=== PATIENT | male | born 1975 | race African-American/Black ===

== ENCOUNTER → 2017-08-09 | Day surgery (SDC) | payer BC ==
[2017-08-08 13:17] LABS: BASOPHILS % 0.4 % (0.0-1.0); EOSINOPHILS # (AUTO) 0.1 (0.0-0.4); EOSINOPHILS % 2.2 % (0.0-6.0); HEMATOCRIT 37.2 % (38.2-49.6); HEMOGLOBIN 12.8 g/dL (14.0-18.0); LYMPHOCYTES % 39.8 % (18.0-39.1); MEAN CORPUSCULAR HEMOGLOBIN 30.1 pg (28-32); MEAN CORPUSCULAR HGB CONC 34.4 g/dL (31-35); MEAN CORPUSCULAR VOLUME 87.5 fL (81-99); MONOCYTES # (AUTO) 0.5 (0.2-0.8); MONOCYTES % 10.3 % (4.4-11.3); NEUTROPHILS # (AUTO) 2.4 (2.1-6.9); NEUTROPHILS % 47.3 % (38.7-80.0); PLATELET COUNT 242 x10e3/uL (140-360); RED BLOOD COUNT 4.25 x10e6/uL (4.3-5.7); RED CELL DISTRIBUTION WIDTH 13.1 % (11.7-14.4)
[2017-08-08 13:26] LABS: INR 1.06
[2017-08-08 13:34] LABS: ALANINE AMINOTRANSFERASE 45 IU/L (0-55); ALBUMIN/GLOBULIN RATIO 1.1 (0.8-2.0); ALKALINE PHOSPHATASE 80 IU/L (40-150); ANION GAP 11.2 mmol/L (8-16); BLOOD UREA NITROGEN 9 mg/dL (7-26); BUN/CREATININE RATIO 9 (6-25); CALCIUM 9.9 mg/dL (8.4-10.2); CARBON DIOXIDE 29 mmol/L (22-29); CHLORIDE 106 mmol/L (98-107); CHOL/HDL RATIO 4.1 (3.9-4.7); CHOLESTEROL 185 MD/DL (0-199); CREATININE, SERUM 0.97 mg/dL (0.72-1.25); EST GLOMERULAR FILTRATION RATE > 60 ML/MIN (60-); GLUCOSE 95 mg/dL (74-118); HDL CHOLESTEROL 45 MG/DL (40-60); LDL CHOLESTEROL 125 MG/DL (60-130); POTASSIUM 4.2 mmol/L (3.5-5.1); SODIUM 142 mmol/L (136-145); TRIGLYCERIDES 77 MG/DL (0-149)
[2017-08-09] VITALS (9 sets, daily range): BP systolic 113–134; BP diastolic 78–88
[~2017-08-09] VITALS: Ht 170.2 cm; Wt 79.4 kg
[~2017-08-09] MED LIST: ALPRAZOLAM 0.5 MG TAB ONE; ASPIRIN81 MG PO; ATROPINE SULFATE 0.1 MG/ML 10ML SYR ONE; COQ-10100 MG PO; DIPHENHYDRAMINE HCL 25 MG CAP ONE; FENTANYL CITRATE/PF 100MCG/2 ML INJ ONE; FISH OIL 1,2001 EAC1 PO; GINGER500 MG PO; HEPARIN SOD/SOD CHLORIDE 2,000 ML ONE; IOPAMIDOL 370 MG/ML 200 ML INFUS..BTL INJ ONE; LIDOCAINE HCL 2% LOCAL 20 ML VIAL ONE; LISINOPRIL10 MG PO; MELATONIN3 MG PO; MIDAZOLAM HCL 2 MG/2 ML VIAL ONE; MILK THISTLE500 MG PO; SODIUM CHLORIDE 0.9% 1000ML 1,000 ML ONE; TURMERIC1 GM PO; VERAPAMIL HCL 2.5 MG/ML 2 ML VIAL ONE; VITAMIN B COMP1 EACH PO; VITAMIN D32000 UNIT PO
--- NOTE | 2017-08-09 15:24 | Operative Report ---
DATE OF PROCEDURE: August 09, 2017 INDICATIONS: Coronary artery disease. Unstable angina. PROCEDURES PERFORMED: 1. Left heart catheterization, selective coronary angiography, and left ventriculography. 2. Deployment of right wrist transradial band. COMPLICATIONS: None. RECOMMENDATIONS: Aggressive medical therapy for coronary artery spasm, Prinzmetal angina. DESCRIPTION OF PROCEDURE: Access was obtained in the right radial artery. A 5-Q[place] sheath was placed. Diagnostic coronary angiogram revealed widely patent coronary arteries in the right coronary, left main, left circumflex, and left anterior descending artery along with their branches. Excellent flow. No critical stenosis or occlusions. Mid procedure the patient had severe spasm of the right coronary artery with marked bradycardia as well as ST elevation in the inferior leads. He was administered nitroglycerin and atropine with complete resolution of his symptoms. LV ejection fraction 65%. LV end-diastolic pressure of 15. No gradient across the aortic valve on pullback. Guide and sheath were removed. TR band applied. Patient was discharged home same day with instructions for medical therapy for severe coronary spasm. Job#: [id number] EV
== END | disposition home or self-care (01) ==
LOC: CATH LAB 11:21
PROVIDERS: ATTEND Internal Medicine Interventional Cardiology
DX: I25.111 Atherosclerotic heart disease of native coronary artery with angina pectoris with documented spasm (principal); R00.1 Bradycardia, unspecified; Z01.812 Encounter for preprocedural laboratory examination; Z79.82 Long term (current) use of aspirin; Z82.49 Family history of ischemic heart disease and other diseases of the circulatory system; Z82.3 Family history of stroke
CPT/HCPCS: 36415; 77002; 80053; 80061; 85025; 85610; 93458; C1769; C1887; J2001; J2250; J7030; Q9967; 36140; 93452

== ENCOUNTER 2017-10-10 20:05 | Emergency (ER) | payer BC ==
[~2017-10-10] VITALS: Ht 170.2 cm; Wt 79.4 kg
[~2017-10-10 20:05] MED LIST changes: -ALPRAZOLAM 0.5 MG TAB ONE; -ATROPINE SULFATE 0.1 MG/ML 10ML SYR ONE; -DIPHENHYDRAMINE HCL 25 MG CAP ONE; -FENTANYL CITRATE/PF 100MCG/2 ML INJ ONE; -HEPARIN SOD/SOD CHLORIDE 2,000 ML ONE; -IOPAMIDOL 370 MG/ML 200 ML INFUS..BTL INJ ONE; -LIDOCAINE HCL 2% LOCAL 20 ML VIAL ONE; -MIDAZOLAM HCL 2 MG/2 ML VIAL ONE; -SODIUM CHLORIDE 0.9% 1000ML 1,000 ML ONE; -VERAPAMIL HCL 2.5 MG/ML 2 ML VIAL ONE
[2017-10-10 21:23] LABS: BASOPHILS % 0.4 % (0.0-1.0); EOSINOPHILS # (AUTO) 0.4 (0.0-0.4); EOSINOPHILS % 4.4 % (0.0-6.0); HEMATOCRIT 37.2 % (38.2-49.6); HEMOGLOBIN 12.5 g/dL (14.0-18.0); LYMPHOCYTES # (AUTO) 2.8 (1.0-3.2); LYMPHOCYTES % 34.4 % (18.0-39.1); MEAN CORPUSCULAR HEMOGLOBIN 29.8 pg (28-32); MEAN CORPUSCULAR HGB CONC 33.6 g/dL (31-35); MEAN CORPUSCULAR VOLUME 88.6 fL (81-99); MONOCYTES # (AUTO) 0.8 (0.2-0.8); MONOCYTES % 9.6 % (4.4-11.3); NEUTROPHILS # (AUTO) 4.1 (2.1-6.9); NEUTROPHILS % 50.8 % (38.7-80.0); PLATELET COUNT 211 x10e3/uL (140-360); RED CELL DISTRIBUTION WIDTH 14.3 % (11.7-14.4)
--- NOTE | 2017-10-10 22:02 | Diagnostic Imaging Report ---
EXAMINATION: CHEST 2 VIEWS INDICATION: Cough COMPARISON: None FINDINGS: TUBES and LINES: None. LUNGS: Lungs are well inflated. Lungs are clear. There is no evidence of pneumonia or pulmonary edema. PLEURA: No pleural effusion or pneumothorax. HEART AND MEDIASTINUM: The cardiomediastinal silhouette is unremarkable. BONES AND SOFT TISSUES: No acute osseous lesion. Soft tissues are unremarkable. UPPER ABDOMEN: No free air under the diaphragm. IMPRESSION: No acute thoracic abnormality. Signed by: Dr. Baron Rodriguez M.D. on 10/10/2017 9:58 PM
[2017-10-10 22:50] LABS: ALANINE AMINOTRANSFERASE 54 IU/L (0-55); ALBUMIN 4.1 g/dL (3.5-5.0); ALBUMIN/GLOBULIN RATIO 1.3 (0.8-2.0); ALKALINE PHOSPHATASE 74 IU/L (40-150); ANION GAP 14.4 mmol/L (8-16); BLOOD UREA NITROGEN 11 mg/dL (7-26); BUN/CREATININE RATIO 12 (6-25); CALCIUM 9.6 mg/dL (8.4-10.2); CARBON DIOXIDE 27 mmol/L (22-29); CHLORIDE 103 mmol/L (98-107); CREATINE KINASE 285 IU/L (30-200); CREATININE, SERUM 0.95 mg/dL (0.72-1.25); EST GLOMERULAR FILTRATION RATE > 60 ML/MIN (60-); GLUCOSE 98 mg/dL (74-118); POTASSIUM 3.4 mmol/L (3.5-5.1); SODIUM 141 mmol/L (136-145)
[2017-10-10 23:15] VITALS: BP 126/77
== END 2017-10-10 23:19 | disposition home or self-care (01) ==
LOC: ER 20:05
DX: R05 Cough (principal); J20.9 Acute bronchitis, unspecified
CPT/HCPCS: 36415; 71046; 80053; 82550; 82553; 84484; 85025; 93005; 99283

== ENCOUNTER 2017-10-22 13:36 | Emergency (ER) | payer BC ==
[~2017-10-22] VITALS: Ht 170.2 cm; Wt 79.4 kg
[2017-10-22] MEDS ORDERED: ALBUTEROL SULF 0.083% NEB SOLN 3 ML NEB NEB STA (14:04)
[2017-10-22] MEDS ORDERED: IPRATROPIUM BROMIDE 0.02% 2.5 ML NEB NEB STA (14:04)
[2017-10-22] MEDS ORDERED: BELLADONNA ALK/PHENOBARBITAL 5 ML UDC PO SCH (15:00)
[2017-10-22] MEDS ORDERED: MAGNESIUM/ALUMINUM/SIMETHICONE 30 ML UDC PO ONE (15:00)
[2017-10-22] MEDS ORDERED: LIDOCAINE VISC 2% SOLN 15 ML UDC PO ONE (15:00)
--- NOTE | 2017-10-22 15:25 | Diagnostic Imaging Report ---
PROCEDURE: Frontal and lateral views of the chest. COMPARISON: Patients [facility], , CHEST 2 VIEWS, 10/10/2017, 20:30. INDICATIONS: DIZZINESS, BRONCHITIS, CHEST PAIN FINDINGS: Lines/tubes: None. Lungs: The lungs are well inflated and clear. There is no evidence of pneumonia or pulmonary edema. Pleura: There is no pleural effusion or pneumothorax. Heart and mediastinum: The heart and the mediastinum are normal. Bones: No acute bony abnormality. IMPRESSION: 1. No acute cardiopulmonary abnormalities. Naren Burr M.D. Dictated by: Naren Burr M.D. on 10/22/2017 at 15:28 Electronically approved by: Naren Burr M.D. on 10/22/2017 at 15:28
[2017-10-22 15:57] LABS: BASOPHILS % 0.5 % (0.0-1.0); EOSINOPHILS # (AUTO) 0.1 (0.0-0.4); HEMATOCRIT 42.1 % (38.2-49.6); HEMOGLOBIN 14.3 g/dL (14.0-18.0); LYMPHOCYTES # (AUTO) 1.5 (1.0-3.2); LYMPHOCYTES % 24.2 % (18.0-39.1); MEAN CORPUSCULAR HEMOGLOBIN 30.4 pg (28-32); MEAN CORPUSCULAR VOLUME 89.6 fL (81-99); MONOCYTES # (AUTO) 0.5 (0.2-0.8); MONOCYTES % 8.3 % (4.4-11.3); NEUTROPHILS # (AUTO) 4.1 (2.1-6.9); NEUTROPHILS % 65.7 % (38.7-80.0); PLATELET COUNT 214 x10e3/uL (140-360); RED CELL DISTRIBUTION WIDTH 14.2 % (11.7-14.4)
[2017-10-22 16:19] LABS: ALANINE AMINOTRANSFERASE 48 IU/L (0-55); ALBUMIN 4.3 g/dL (3.5-5.0); ALBUMIN/GLOBULIN RATIO 1.2 (0.8-2.0); ALKALINE PHOSPHATASE 84 IU/L (40-150); ANION GAP 14.7 mmol/L (8-16); BLOOD UREA NITROGEN 16 mg/dL (7-26); BUN/CREATININE RATIO 17 (6-25); CALCIUM 10.1 mg/dL (8.4-10.2); CARBON DIOXIDE 24 mmol/L (22-29); CHLORIDE 103 mmol/L (98-107); CREATINE KINASE 123 IU/L (30-200); CREATININE, SERUM 0.93 mg/dL (0.72-1.25); EST GLOMERULAR FILTRATION RATE > 60 ML/MIN (60-); GLUCOSE 115 mg/dL (74-118); POTASSIUM 3.7 mmol/L (3.5-5.1); SODIUM 138 mmol/L (136-145)
[2017-10-22 16:45] LABS: AMYLASE 75 U/L (25-125); LIPASE 48 U/L (8-78)
[2017-10-22] MEDS ORDERED: KETOROLAC TROMETHAMINE 30 MG/ML VIAL IV STA (17:27)
[2017-10-22] MEDS ORDERED: HYDRALAZINE HCL 20 MG/ML VIAL IV STA (17:32)
[2017-10-22 18:08] VITALS: BP 149/95
== END 2017-10-22 18:13 | disposition home or self-care (01) ==
LOC: ER 13:36
DX: R07.89 Other chest pain (principal); R09.1 Pleurisy; R10.10 Upper abdominal pain, unspecified; R53.1 Weakness; R53.83 Other fatigue; I10 Essential (primary) hypertension; M87.852 Other osteonecrosis, left femur; M87.851 Other osteonecrosis, right femur
CPT/HCPCS: 36415; 71046; 80053; 82150; 82550; 82553; 83690; 83880; 84484; 85025; 85379; 93005; 99284; J0360; J1885

== ENCOUNTER → 2017-11-05 | Outpatient (CLI) | payer BC ==
[~2017-11-05] MED LIST changes: +IOPAMIDOL 370 MG/ML 200 ML INFUS..BTL INJ ONE; +SODIUM CHLORIDE 0.9% 50ML 50 ML ONE
[2017-11-05 15:27] LABS: BLOOD UREA NITROGEN 13 mg/dL (7-26); BUN/CREATININE RATIO 12 (6-25); CREATININE, SERUM 1.07 mg/dL (0.72-1.25); EST GLOMERULAR FILTRATION RATE > 60 ML/MIN (60-)
--- NOTE | 2017-11-05 20:52 | Diagnostic Imaging Report ---
PROCEDURE: CT scan of the chest WITH intravenous contrast, using standard protocol. TECHNIQUE: The chest was scanned utilizing a multidetector helical scanner from the lung apex through the level of the adrenal glands after the IV administration of 100 cc of Isovue 370. Coronal and sagittal multiplanar reformations were obtained. COMPARISON: [facility], , CHEST 2 VIEWS, 10/22/2017, 14:07. INDICATIONS: sob, COUGH FINDINGS: Lines/tubes: None. Lungs and Airways: Minimal bilateral lower lobe dependent atelectasis. No nodules, masses, other opacities or consolidation. Airways are clear, without endobronchial lesions Pleura: No effusion, or pneumothorax. Heart and mediastinum: Thyroid is unremarkable. Heart size is normal. No pericardial effusion. Aorta is non-aneurysmal. Mental pulmonary artery is normal in caliber. Lymph nodes: No mediastinal, hilar, or axillary adenopathy. Abdomen: Limited contrast-enhanced views of the upper abdomen show no abnormality within the visualized liver, spleen, pancreas, or kidneys. The adrenal glands are unremarkable. Bones: No aggressive lytic lesion. Soft tissues are unremarkable. IMPRESSION: 1. Essentially unremarkable chest CT. Naren Burr M.D. Dictated by: Naren Burr M.D. on 11/05/2017 at 17:52 Electronically approved by: Naren Burr M.D. on 11/05/2017 at 17:52
== END ==
LOC: CT 14:37
PROVIDERS: ATTEND Internal Medicine
DX: R06.02 Shortness of breath (principal); R05 Cough
CPT/HCPCS: 36415; 71260; 76937; 82565; 84520; Q9967

== ENCOUNTER → 2019-10-30 | Outpatient (CLI) | payer BC ==
[~2019-10-30] MED LIST changes: -IOPAMIDOL 370 MG/ML 200 ML INFUS..BTL INJ ONE; +PROAIR HFA INH8.5 GM INH; -SODIUM CHLORIDE 0.9% 50ML 50 ML ONE; +SYMBICORT 16010.2 GM INH; +TADALAFIL10 MG PO
--- NOTE | 2019-11-02 09:29 | Diagnostic Imaging Report ---
EXAMINATION: CERVICAL SPINE 4 OR 5 VIEWS INDICATION: Spondylosis COMPARISON: None FINDINGS: AP, lateral, oblique and odontoid images of the cervical spine demonstrate no acute fracture or dislocation. There is straightening of the normal cervical lordosis. Alignment is otherwise intact with no evidence of spondylosis. Mild multilevel degenerative changes with small osteophyte formation. Prevertebral soft tissues are normal in thickness. IMPRESSION: Mild multilevel degenerative changes of the cervical spine. Signed by: Jaycob Arroyo MD on 11/02/2019 9:26 AM
== END ==
LOC: RAD 16:50
PROVIDERS: ATTEND Internal Medicine
DX: M47.812 Spondylosis without myelopathy or radiculopathy, cervical region (principal)
CPT/HCPCS: 72050

== ENCOUNTER → 2022-08-21 | Outpatient (CLI) | payer BC | LOC: MRI 07:54 | PROVIDERS: ATTEND Internal Medicine | DX: M47.812 Spondylosis without myelopathy or radiculopathy, cervical region (principal) | CPT/HCPCS: 72141 ==